=== PATIENT | female | born 1990 | race Caucasian/White ===

== ENCOUNTER 2020-07-21 01:13 | Emergency (ER) | payer OTHER ==
[~2020-07-21 01:13] MED LIST: MACROBID 100 M100 MG PO
[2020-07-21 06:24] LABS: HEMOGLOBIN 13.7 gm/dl (12.3-15.3); RED BLOOD COUNT 4.61 M/UL (4.00-5.10); WHITE BLOOD COUNT 6.6 K/UL (4.5-11.0)
[2020-07-21 06:45] LABS: BUN/CREATININE RATIO 23 (0-10)
[2020-07-21] MEDS ORDERED: BENADRYL25 MG PO (10:57)
== END 2020-07-21 11:05 | disposition home or self-care (01) ==
LOC: ER1 01:13
PROVIDERS: Emergency Medicine
DX: T78.40XA Allergy, unspecified, initial encounter (principal); F17.200 Nicotine dependence, unspecified, uncomplicated
CPT/HCPCS: 80053; 82550; 82553; 83874; 84484; 85025; 85379; 93005; 96372; 99283; J2930

== ENCOUNTER 2020-08-31 19:29 | Emergency (ER) | payer OTHER ==
[~2020-08-31 19:29] MED LIST changes: +BENADRYL25 MG PO
[2020-08-31 20:21] LABS: HEMOGLOBIN 14.3 gm/dl (12.3-15.3); RED BLOOD COUNT 4.64 M/UL (4.00-5.10); WHITE BLOOD COUNT 7.4 K/UL (4.5-11.0)
[2020-08-31 20:49] LABS: BUN/CREATININE RATIO 19 (0-10)
== END 2020-08-31 21:51 | disposition home or self-care (01) ==
LOC: ER1 19:29
PROVIDERS: Family Medicine
DX: R07.89 Other chest pain (principal); F17.210 Nicotine dependence, cigarettes, uncomplicated; Z90.49 Acquired absence of other specified parts of digestive tract
CPT/HCPCS: 80053; 82550; 82553; 83874; 84484; 85025; 85379; 93005; 99285; Q9967

== ENCOUNTER 2021-07-14 18:04 | Emergency (ER) | payer OTHER ==
[2021-07-14 19:50] LABS: HEMOGLOBIN 12.2 gm/dl (12.3-15.3); RED BLOOD COUNT 4.22 M/UL (4.00-5.10)
[2021-07-14 20:20] LABS: BUN/CREATININE RATIO 15 (0-10)
== END 2021-07-14 21:45 | disposition home or self-care (01) ==
LOC: ER1 18:04
PROVIDERS: Family Medicine
DX: U07.1 COVID-19 (principal); F17.200 Nicotine dependence, unspecified, uncomplicated
CPT/HCPCS: 80053; 81001; 83605; 84703; 85025; 96374; 99283; J1885; J7030; U0002

== ENCOUNTER 2021-10-25 18:14 | Emergency (ER) | payer OTHER ==
[2021-10-25] MEDS ORDERED: CEPHALEXIN500 M1 PO (19:50)
== END 2021-10-25 20:07 | disposition home or self-care (01) ==
LOC: ER1 18:14
DX: S91.342A Puncture wound with foreign body, left foot, initial encounter (principal); Z23 Encounter for immunization; F17.210 Nicotine dependence, cigarettes, uncomplicated; W45.8XXA Other foreign body or object entering through skin, initial encounter
CPT/HCPCS: 10120; 73630; 90715; 99283

== ENCOUNTER 2022-03-21 18:17 | Emergency (ER) | payer OTHER ==
[~2022-03-21 18:17] MED LIST changes: +CEPHALEXIN500 M1 PO
[2022-03-21 18:46] LABS: HEMOGLOBIN 13.2 gm/dl (12.3-15.3); RED BLOOD COUNT 4.29 M/UL (4.00-5.10); WHITE BLOOD COUNT 5.8 K/UL (4.5-11.0)
[2022-03-21 19:40] LABS: BUN/CREATININE RATIO 15 (0-10)
== END 2022-03-21 22:47 | disposition home or self-care (01) ==
LOC: ER1 18:17
PROVIDERS: Physician Assistant
DX: R60.0 Localized edema (principal); R10.9 Unspecified abdominal pain; R10.814 Left lower quadrant abdominal tenderness; F17.200 Nicotine dependence, unspecified, uncomplicated
CPT/HCPCS: 71045; 80053; 81001; 83880; 84703; 85025; 96374; 99283; J2405; Q9967